=== PATIENT | female | born 1970 | race African-American/Black ===

== ENCOUNTER → 2019-08-02 | Day surgery (SDC) | payer MEDICARE, OTHER ==
[2019-07-26 10:58] LABS: BASOPHILS % 0.7 % (0.0-1.0); EOSINOPHILS # (AUTO) 0.2 (0.0-0.4); EOSINOPHILS % 3.8 % (0.0-6.0); HEMATOCRIT 40.4 % (34.2-44.1); HEMOGLOBIN 12.5 g/dL (12.0-16.0); LYMPHOCYTES # (AUTO) 1.3 (1.0-3.2); MEAN CORPUSCULAR HEMOGLOBIN 25.5 pg (28-32); MEAN CORPUSCULAR HGB CONC 30.9 g/dL (31-35); MEAN CORPUSCULAR VOLUME 82.4 fL (81-99); MONOCYTES # (AUTO) 0.4 (0.2-0.8); MONOCYTES % 7.6 % (4.4-11.3); NEUTROPHILS # (AUTO) 3.5 (2.1-6.9); NEUTROPHILS % 63.5 % (38.7-80.0); PLATELET COUNT 271 x10e3/uL (140-360); RED CELL DISTRIBUTION WIDTH 14.7 % (11.7-14.4)
[~2019-08-02] MED LIST: AMITIZA24 MCG PO; AMLODIPINE BESYL5 MG PO; ASPIR 8181 MG PO; ATORVASTATIN CA20 MG PO; CLOPIDOGREL75 MG PO; DICYCLOMINE HCL20 MG PO; FAMOTIDINE20 MG PO; FERROUS SULFAT325 MG PO; LIDOCAINE HCL 2% LOCAL INJ 5 ML SDV VIAL INJ ONE; MELOXICAM7.5 MG PO; MIDAZOLAM HCL 2 MG/2 ML VIAL ONE; NEXIUM40 MG PO; OMEPRAZOLE40 MG PO; PROPOFOL IV EMULSION 10 MG/ML 20 ML VIAL ONE; VASOTEC5 MG PO; VITAMIN K100 MCG PO
--- OUTSIDE RECORDS SUMMARY | 2019-08-02 08:27 | XMS REPORT ---
[facility] Address Unknown Phone Unavailable Care Team Providers Care [employer] Sales Consultant Name Role Phone Unavailable Unavailable Payers Payer Name Policy Type Policy Number Effective Date Expiration Date Problems This patient has no known problems. Allergies, Adverse Reactions, Alerts Allergy Name Allergy Type Status Severity Reaction(s) Onset Date Inactive Date Treating Clinician Comments No Known Allergies DA Active U 2016-03-13 00:00:00 Medications This patient has no known medications. Results Test Description Test Time Test Comments Text Results Atomic Results Result Comments COMPREHENSIVE METABOLIC PANEL 2018-11-30 08:42:00 SODIUM (test code=NA) 145 mmol/L 136-145 POTASSIUM (test code=K) 3.8 mmol/L 3.5-5.1 CHLORIDE (test code=CL) 110.0 mmol/L 98-107 CARBON DIOXIDE (test code=CO2) 29.0 mmol/L 21-32 ANION GAP (test code=GAP) 9.8 10-20 GLUCOSE (test code=GLU) 88 mg/dL 74-106 BLOOD UREA NITROGEN (test code=BUN) 12 mg/dL 7-18 GLOMERULAR FILTRATION RATE (test code=GFR) > 60 mL/min >=60 Estimated GFR by using Modified MDRD formula.Chronic kidney disease is defined as either kidney damageor GFR <60 mL/min/1.73 m2 for >3 months. CREATININE (test code=CREAT) 0.90 mg/dL 0.55-1.02 Note change in reference range due to change in reagent. BUN/CREATININE RATIO (test code=BUN/CREA) 13.0 10-20 TOTAL PROTEIN (test code=PROT) 8.2 gram/dL 6.4-8.2 ALBUMIN (test code=ALB) 3.5 g/dL 3.4-5.0 GLOBULIN (test code=GLOB) 4.7 gram/dL 2.7-4.2 ALBUMIN/GLOBULIN RATIO (test code=A/G) 0.7 0.75-1.50 CALCIUM (test code=CA) 9.0 mg/dL 8.5-10.1 BILIRUBIN TOTAL (test code=BILT) 0.30 mg/dL 0.0-1.0 SGOT/AST (test code=AST) 13 IUnit/L 15-37 SGPT/ALT (test code=ALT) 15 IUnit/L 12-78 ALKALINE PHOSPHATASE TOTAL (test code=ALKP) 118 IUnit/L 45-117 Note change in reference range due to change in reagent. LIPID PROFILE (CORONARY RISK)2018-11-30 08:42:00* Test Item Value Reference Range Comments TRIGLYCERIDES (test code=TRIG) 100 mg/dL 20-150 CHOLESTEROL (test code=CHOL) 159 mg/dL 0-200 CHOLESTEROL/HDL RATIO (test code=CHOLHDL) 3.0 RATIO 0-4.9 RISK ASSOCIATED WITH CHOL/HDL RATIOS: Risk Male Female1/2 AVERAGE 3.43 3.27AVERAGE 4.97 4.442X AVERAGE 9.55 7.053X AVERAGE 23.39 11.04 REFERENCE VALUE IS RELATED TO RISK LEVELS ASRECOMMENDED BY THE NAYELI. HEART, LUNG, AND BLOOD INST. HDL CHOLESTEROL (test code=HDL) 51 mg/dL 40-60 LIPOPROTEIN LDL (test code=LDL) 87 mg/dL 100-129 Reference Interval: mg/dL mmol/L Optimal <100 <2.6Near/above optimal 100-129 2.6- 3.3Borderline High 130-159 3.4-4.1High 160-189 4.1-4.9Very High >=190 >=4.9=========This LDL result is a direct measurement.========= COMPREHENSIVE METABOLIC [id number] 08:30:00* Test Item Value Reference Range Comments SODIUM (test code=NA) 145 mmol/L 136-145 POTASSIUM (test code=K) 3.8 mmol/L 3.5-5.1 CHLORIDE (test code=CL) 110.0 mmol/L 98-107 CARBON DIOXIDE (test code=CO2) mmol/L 21-32 ANION GAP (test code=GAP) 10-20 GLUCOSE (test code=GLU) mg/dL 74-106 BLOOD UREA NITROGEN (test code=BUN) mg/dL 7-18 GLOMERULAR FILTRATION RATE (test code=GFR) mL/min >=60 CREATININE (test code=CREAT) mg/dL 0.55-1.02 BUN/CREATININE RATIO (test code=BUN/CREA) 10-20 TOTAL PROTEIN (test code=PROT) gram/dL 6.4-8.2 ALBUMIN (test code=ALB) g/dL 3.4-5.0 GLOBULIN (test code=GLOB) gram/dL 2.7-4.2 ALBUMIN/GLOBULIN RATIO (test code=A/G) 0.75-1.50 CALCIUM (test code=CA) mg/dL 8.5-10.1 BILIRUBIN TOTAL (test code=BILT) mg/dL 0.0-1.0 SGOT/AST (test code=AST) IUnit/L 15-37 SGPT/ALT (test code=ALT) IUnit/L 12-78 ALKALINE PHOSPHATASE TOTAL (test code=ALKP) IUnit/L 45-117 LIPID PROFILE (CORONARY RISK)2018-11-30 08:30:00* Test Item Value Reference Range Comments TRIGLYCERIDES (test code=TRIG) mg/dL 20-150 CHOLESTEROL (test code=CHOL) mg/dL 0-200 CHOLESTEROL/HDL RATIO (test code=CHOLHDL) RATIO 0-4.9 HDL CHOLESTEROL (test code=HDL) mg/dL 40-60 LIPOPROTEIN LDL (test code=LDL) mg/dL 100-129
--- OUTSIDE RECORDS SUMMARY | 2019-08-02 08:27 | XMS REPORT | Clinical Summary ---
Author Author [facility] Address Unknown Phone Unavailable Care Team Providers Care Drug Regulatory Affairs Specialist Name Role Phone Mike Barron MD PCP Allergies No Known Allergies Medications End Date Status Medication Sig Dispensed Refills Start Date Active clopidogrel (PLAVIX) 75 clopidogrel 0 mg tablet 75 mg tablet Active atorvastatin (LIPITOR) 40 Take 40 mg by 0 MG tablet mouth daily. Active enalapril (VASOTEC) 10 MG Take 10 mg by 0 tablet mouth daily. 04/03/2020 Active venlafaxine XR (EFFEXOR Take 1 30 capsule 7 XR) 37.5 MG 24 hr capsule capsule (37.5 9 mg total) by mouth daily. 04/04/2019 Discontinued (Reorder) venlafaxine XR (EFFEXOR Take 1 30 capsule 11 XR) 37.5 MG 24 hr capsule capsule (37.5 8 mg total) by mouth daily. Active Problems Problem Noted Date Malignant tumor of cervix Endometrial carcinoma Overview: grade II Hypercoagulable state PE (pulmonary embolism) Encounters Care Team Description Date Type Specialty Mariangel Iglesias Bariatric Follow Up call 07/18/2019 Documentation Weight Management Mariangel Iglesias Bariatric Follow Up Letter 07/18/2019 Documentation Weight Management Shelley Estes MD History of endometrial cancer 04/09/2019 Lab Lab Shelley Estes MD History of endometrial cancer (Primary Dx) 04/09/2019 Office Visit Oncology oLbito Sheldon MD History of endometrial cancer 04/04/2019 Office Visit Gynecologic Oncology Lobito Sheldon MD History of endometrial cancer 10/02/2018 Office Visit Gynecologic Oncology after 08/01/2018 Family History Medical History Relation Name Comments Heart disease Father Colon cancer Mother Diabetes Mother Hypertension Mother Relation Name Status Comments Father Mother Social History Date Tobacco Use Types Packs/Day Years Used Former Smoker Smokeless Tobacco: Never Used Drinks/Week oz/Week Comments Alcohol Use Yes Sex Assigned at Date Recorded Not on file Industry Job Start Date Occupation Not on file Not on file Not on file Travel End Travel History Travel Start No recent travel history available. Last Filed Vital Signs Reading Time Taken Comments Vital Sign 163/76 04/09/2019 9:10 AM CDT Blood Pressure 68 04/09/2019 9:10 AM CDT Pulse 36.6 C (97.9 F) 04/09/2019 9:10 AM CDT Temperature - - Respiratory Rate - - Oxygen Saturation - - Inhaled Oxygen Concentration 151 kg (332 lb 3.2 oz) 04/09/2019 9:10 AM CDT Weight 162.6 cm (5' 4") 04/09/2019 9:10 AM CDT Height 57.02 04/09/2019 9:10 AM CDT Body Mass Index Plan of Treatment Care Team Description Date Type Specialty Shelley Estes MD [address] [place] [id number] 04/07/2020 Office Visit Oncology Health Maintenance Due Date Last Done Comments CERVICAL CANCER SCREENING 1989 BREAST CANCER SCREENING 2018 COLONOSCOPY SCREENING 2018 SHINGLES VACCINES (#1) 2018 INFLUENZA VACCINE 06/07/2019 Procedures Comments Procedure Name Priority Date/Time Associated Diagnosis CANCER ANTIGEN 125 Routine 04/09/2019 History of endometrial 9:54 AM CDT cancer after 08/01/2018 Results * Cancer antigen 125 (04/09/2019 9:54 AM CDT) CA 125 5 0 - 35 U/mL [facility] Comment: [facility] immunoassay was used. Results obtained with different assay methods or kits should not be used interchangeably and may be different. Specimen Plasma specimen Performing Organization Address City/State/Zipcode Phone Number [facility] [address] [place] [address] PATHOLOGY AND GENOMIC MEDICINE [facility] [address] [place] [address] HOSPITAL after 08/01/2018 Insurance Type Payer Benefit Subscriber ID Effective Phone Address Plan / Dates Group Medicare MEDICARE MEDICARE xxxxxxxxxxx 2005- [facility], PART A AND Present [place] B Medicaid MEDICAID MEDICAID xxxxxxxxx [id number] resent Advance Directives For more information, please contact: [phone] Patient Family Law Paralegal Explanation Type Date Recorded Advance Directives, Living Will and Medical Power of Seismometer Operator
[2019-08-02 13:10] VITALS: BP 121/77
== END | disposition home or self-care (01) ==
LOC: OR 08:25
PROVIDERS: ATTEND Internal Medicine
DX: K21.9 Gastro-esophageal reflux disease without esophagitis (principal); K29.70 Gastritis, unspecified, without bleeding; Z98.84 Bariatric surgery status; K44.9 Diaphragmatic hernia without obstruction or gangrene; I69.351 Hemiplegia and hemiparesis following cerebral infarction affecting right dominant side; E66.01 Morbid (severe) obesity due to excess calories; G47.33 Obstructive sleep apnea (adult) (pediatric); E78.5 Hyperlipidemia, unspecified; Z01.810 Encounter for preprocedural cardiovascular examination; Z01.812 Encounter for preprocedural laboratory examination; Z79.02 Long term (current) use of antithrombotics/antiplatelets; Z79.82 Long term (current) use of aspirin; Z68.43 Body mass index [BMI] 50.0-59.9, adult; Z86.2 Personal history of diseases of the blood and blood-forming organs and certain disorders involving the immune mechanism; Z87.891 Personal history of nicotine dependence; Z80.0 Family history of malignant neoplasm of digestive organs
CPT/HCPCS: 36415; 43239; 85025; 93005; J2001; J2250; J2704